=== PATIENT | female | born 1960 | race Caucasian/White ===

== ENCOUNTER → 2016-08-08 | Outpatient (CLI) | payer BC ==
--- NOTE | 2016-08-08 17:05 | DI ---
RIGHT INDEX FINGER, 08/08/2016 4:32 PM: Clinical History: Pain in the right index finger. Previous Exam: 04/14/2009. 3 views are submitted. There is no acute soft tissue, osseous, or joint abnormality. On the lateral p rojection both for this study as well as the prior exam, there is the appearance of a "swan-neck" def ormity suggesting injury or laxity of the flexor tendon at the level of the DIP joint. Reading: No fracture noted. 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
--- NOTE | 2016-08-08 17:05 | DI ---
RIGHT WRIST, 08/08/2016 4:32 PM: Clinical History: Right wrist pain. Previous Exam: None at this facility. 3 views are submitted. There is no acute soft tissue, osseous, or joint abnormality. At the location of the radial collateral ligament of the first metacarpophalangeal joint, there is a calcific density . This may represent an old avulsion fracture of the ulnar collateral ligament. Reading: Normal right wrist exam. Probable old injury to the first metacarpophalangeal joint.
== END ==
LOC: ORTHO 16:33
PROVIDERS: ATTEND Orthopaedic Surgery
DX: M79.644 Pain in right finger(s) (principal); M25.531 Pain in right wrist
CPT/HCPCS: 73110; 73140

== ENCOUNTER → 2016-08-19 | Outpatient (CLI) | payer BC ==
--- NOTE | 2016-08-19 09:10 | DI ---
MRI UP EXTREMITY W/O CN,08/19/2016 7:55 AM: Clinical History: Pain of the finger of the right hand. Previous Exam: Plain films of the right hand performed August 08, 2016 Findings: Multiplanar MR images are obtained through the right hand without contrast. Axial PD pre-and post con trast images demonstrate fluid surrounding the flexor digitorum tendons along the palmar surface of t he second digit. Evaluation of the first digit reveals fluid within the first carpometacarpal joint. There is some mil d marrow edema involving the proximal first metacarpal along the ulnar surface. There is subchondral cyst formation involving the distal interphalangeal joint of the first digit as well. The surrounding musculature is unremarkable. There are a few small cystic changes within the carpal b ones. This is most noticeable involving the dorsal surface of the lunate no fractures are seen. There are osteophytes noted. The distal radial ulnar joint is unremarkable. The lumbar., Thenar eminence and hypothenar eminence a re normal. Signal within the proximal phalanges is unremarkable. The extensor and flexor pollicis longus tendons are within normal limits. There is some marrow edema involving the proximal capitate as well. Impression: 1. Ganglion cysts involving the flexor digitorum longus tendon of the second digit. 2. Fluid and degenerative changes of the first carpometacarpal joint with some subchondral cyst forma tion in the proximal metacarpal. These findings are most consistent with osteoarthritis. 3. 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 4. Mild cystic changes along the dorsal aspect of the lunate most consistent with some cystic changes at the attachment of the dorsal scapholunate ligament.
== END ==
LOC: MRI 07:50
PROVIDERS: ATTEND Orthopaedic Surgery
DX: M79.644 Pain in right finger(s) (principal); M67.441 Ganglion, right hand
CPT/HCPCS: 73218